=== PATIENT | female | born 1945 | race Caucasian/White ===

== ENCOUNTER → 2023-09-16 10:27 | Outpatient (REF) | payer MEDICARE, BC, SELFPAY | LOC: DHCBC HW 10:27 | PROVIDERS: ATTENDING PHYSICIAN Internal Medicine Cardiovascular Disease; FAMILY PHYSICIAN Family Medicine | DX: I35.0 Nonrheumatic aortic (valve) stenosis (principal) | CPT/HCPCS: 93306 ==

== ENCOUNTER → 2023-09-23 16:36 | Outpatient (REF) | payer MEDICARE, BC, SELFPAY | LOC: PAVMRI 16:36 | PROVIDERS: ATTENDING PHYSICIAN Podiatrist Primary Podiatric Medicine | DX: M19.071 Primary osteoarthritis, right ankle and foot (principal); M25.571 Pain in right ankle and joints of right foot; M65.871 Other synovitis and tenosynovitis, right ankle and foot | CPT/HCPCS: 73721 ==

== ENCOUNTER → 2023-11-20 12:19 | Outpatient (REF) | payer MEDICARE, BC, SELFPAY ==
[2023-11-20 15:31] LABS: ALT (SGPT) 29 U/L (0-35); AST (SGOT) 36 U/L (14-36); Alkaline Phosphatase 80 U/L (38-126); Blood Urea Nitrogen 17 mg/dl (7-17); Calcium 9.2 mg/dl (8.4-10.2); Carbon Dioxide 27 mmol/L (22-30); Chloride 105 mmol/L (98-107); Glucose 94 mg/dl (70-99); HDL Cholesterol 58 mg/dl; LDL Cholesterol, Calculated 115 mg/dl; Sodium 140 mmol/L (135-145); Total Bilirubin 0.4 mg/dl (0.2-1.3); Total Cholesterol 190 mg/dl (50-199); Total Protein 6.9 g/dl (6.3-8.2); Triglyceride 89 mg/dl (10-149); Very Low Density Lipoprotein 17 mg/dl (0-30); eGFR > 60.00
== END ==
LOC: HWLAB 12:19
PROVIDERS: ATTENDING PHYSICIAN Internal Medicine
DX: E78.5 Hyperlipidemia, unspecified (principal)
CPT/HCPCS: 36415; 80053; 80061

== ENCOUNTER → 2024-08-08 09:57 | Outpatient (REF) | payer MEDICARE, BC, SELFPAY ==
[2024-08-08 11:31] LABS: % Basophils 1.1 % (0-2); % Immature Granulocytes 0.3 % (0-0.5); % Lymphocytes 24.5 % (20.5-51.1); % Monocytes 8.5 % (1.7-9.3); % Neutrophils 62.6 % (42.2-75.2); Absolute Basophils 0.1 10^3/uL (0-0.2); Absolute Eosinophils 0.2 10^3/uL (0-0.7); Absolute Lymphocytes 1.8 10^3/uL (1.2-3.4); Absolute Monocytes 0.6 10^3/uL (0.1-0.6); Absolute Neutrophils 4.6 10^3/uL (1.4-6.5); Hematocrit 41.8 % (37.0-47.0); Hemoglobin 13.7 g/dL (12.0-16.0); Mean Corp Hgb Conc. 32.8 g/dL (33.0-37.0); Mean Corpuscular Volume 91.5 fL (81.0-99.0); Mean Platelet Volume 10.5 fL (7.4-10.4); Nucleated Red Blood Cells % 0 %; Platelet Count 318 10^3/uL (130-400); Red Blood Cell Count 4.57 10^6/uL (4.20-5.40); Red Cell Dist. Width 14.7 % (11.5-14.5); White Blood Cell Count 7.4 10^3/uL (4.8-10.8)
[2024-08-08 12:38] LABS: ALT (SGPT) 37 U/L (0-35); AST (SGOT) 36 U/L (14-36); Albumin 4.2 g/dl (3.5-5.0); Alkaline Phosphatase 88 U/L (38-126); Blood Urea Nitrogen 24 mg/dl (7-17); Calcium 9.5 mg/dl (8.4-10.2); Carbon Dioxide 30 mmol/L (22-30); Chloride 102 mmol/L (98-107); Glucose 96 mg/dl (70-99); HDL Cholesterol 51 mg/dl; LDL Cholesterol, Calculated 122 mg/dl; Potassium 4.1 mmol/L (3.5-5.1); Sodium 139 mmol/L (135-145); Total Bilirubin 0.6 mg/dl (0.2-1.3); Total Cholesterol 194 mg/dl (50-199); Total Protein 7.1 g/dl (6.3-8.2); Triglyceride 109 mg/dl (10-149); Very Low Density Lipoprotein 21 mg/dl (0-30); eGFR > 60.00
[2024-08-09 03:25] LABS: TSH Reflex To Free T4 2.29 uIU/ml (0.47-4.68)
[2024-08-09 21:16] LABS: Lipoprotein a (Lp a) 159 mg/dL (<=29)
== END ==
LOC: HWLAB 09:57
PROVIDERS: ATTENDING PHYSICIAN Family Medicine; REFERRING PHYSICIAN Internal Medicine Cardiovascular Disease
DX: E78.5 Hyperlipidemia, unspecified (principal); E78.2 Mixed hyperlipidemia; Z13.1 Encounter for screening for diabetes mellitus; R53.83 Other fatigue; Z13.29 Encounter for screening for other suspected endocrine disorder
CPT/HCPCS: 36415; 80053; 80061; 83695; 84443; 85025

== ENCOUNTER → 2024-08-31 11:02 | Outpatient (REF) | payer MEDICARE, BC, SELFPAY | LOC: WDC 11:02 | PROVIDERS: ATTENDING PHYSICIAN Family Medicine | DX: Z12.31 Encounter for screening mammogram for malignant neoplasm of breast (principal) | CPT/HCPCS: 77063; 77067 ==

== ENCOUNTER → 2024-09-07 13:02 | Outpatient (REF) | payer MEDICARE, BC, SELFPAY | LOC: HWRCS 13:02 | PROVIDERS: ATTENDING PHYSICIAN Internal Medicine Cardiovascular Disease; FAMILY PHYSICIAN Family Medicine | DX: I35.0 Nonrheumatic aortic (valve) stenosis (principal); I10 Essential (primary) hypertension; E78.2 Mixed hyperlipidemia; R06.02 Shortness of breath | CPT/HCPCS: 93306 ==

== ENCOUNTER → 2024-09-16 13:45 | Outpatient (REF) | payer MEDICARE, BC, SELFPAY | LOC: RAD 13:45 | PROVIDERS: ATTENDING PHYSICIAN Internal Medicine Cardiovascular Disease; FAMILY PHYSICIAN Family Medicine | DX: R06.02 Shortness of breath (principal); I35.0 Nonrheumatic aortic (valve) stenosis; E78.01 Familial hypercholesterolemia | CPT/HCPCS: 71046 ==

== ENCOUNTER → 2024-10-18 12:10 | Outpatient (REF) | payer MEDICARE, BC, SELFPAY ==
[2024-10-18 15:49] LABS: ALT (SGPT) 25 U/L (0-35); AST (SGOT) 30 U/L (14-36); Albumin 3.6 g/dl (3.5-5.0); Alkaline Phosphatase 74 U/L (38-126); Blood Urea Nitrogen 15 mg/dl (7-17); Calcium 9.2 mg/dl (8.4-10.2); Carbon Dioxide 27 mmol/L (22-30); Chloride 106 mmol/L (98-107); Glucose 96 mg/dl (70-99); Phosphorus 3.5 mg/dl (2.5-4.5); Potassium 4.3 mmol/L (3.5-5.1); Sodium 141 mmol/L (135-145); Total Bilirubin 0.4 mg/dl (0.2-1.3); Total Protein 6.5 g/dl (6.3-8.2); eGFR > 60.00
[2024-10-18 15:51] LABS: % Basophils 1.2 % (0-2); % Eosinophils 4.1 % (0-6); % Immature Granulocytes 0.2 % (0-0.5); % Lymphocytes 29.1 % (20.5-51.1); % Monocytes 7.9 % (1.7-9.3); % Neutrophils 57.5 % (42.2-75.2); Absolute Basophils 0.1 10^3/uL (0-0.2); Absolute Eosinophils 0.3 10^3/uL (0-0.7); Absolute Lymphocytes 1.8 10^3/uL (1.2-3.4); Absolute Monocytes 0.5 10^3/uL (0.1-0.6); Absolute Neutrophils 3.5 10^3/uL (1.4-6.5); Hematocrit 39.3 % (37.0-47.0); Mean Corp Hgb Conc. 33.1 g/dL (33.0-37.0); Mean Corpuscular Hgb 30.3 pg (27.0-31.0); Mean Corpuscular Volume 91.6 fL (81.0-99.0); Mean Platelet Volume 10.9 fL (7.4-10.4); Nucleated Red Blood Cells % 0 %; Platelet Count 335 10^3/uL (130-400); Red Blood Cell Count 4.29 10^6/uL (4.20-5.40); Red Cell Dist. Width 14.7 % (11.5-14.5)
== END ==
LOC: HWLAB 12:10
PROVIDERS: ATTENDING PHYSICIAN Internal Medicine Cardiovascular Disease; FAMILY PHYSICIAN Family Medicine
DX: I10 Essential (primary) hypertension (principal); I35.0 Nonrheumatic aortic (valve) stenosis; I65.23 Occlusion and stenosis of bilateral carotid arteries
CPT/HCPCS: 36415; 80053; 84100; 85025

== ENCOUNTER 2024-10-25 08:19 | Day surgery (SDC) | payer MEDICARE, BC, SELFPAY ==
[2024-10-25] VITALS (13 sets, daily range): BP systolic 152–171; BP diastolic 69–86; BMI 33.5
[2024-10-25] MEDS: NSS 253 ML IV (09:23)
--- NOTE | 2024-10-25 11:31 | CONSULT.STRU ---
Consultation
-
Date/Time Consultation Requested: 10/25/2024
Date/Time Consultation Performed: 10/25/2024
Requesting Provider: Nikolas Dahl MD
Performing Provider: SHASHA Velasquez
Reason for Consultation: /TAVR
Patient History
Physicians
Family Physician: Ez Garcia MD
Outpatient Reach Truck Operator: Lucian Justin MD
Primary Reach Truck Operator: Lucian Justin MD
History of Present Illness
Ms. Daniels is a very pleasant 79 yof with a past medical history significant for , HTN, HLD, dyslipidemia, GERD, CVA, essential tremor, anxiety, cervicalgia, and bilateral calcified arteries. Her most recent echocardiogram from 09/07/2024 is
notable for an EF 70-75%, aortic valve P/M 59/39, SUMI 1.0, no AI, Pk nate 3.51, MAC with mild MR, mild TR with PAP 39. From a symptomatology standpoint, patient describes ZAMUDIO. She states her exercise tolerance has decreased a little, however, she did
state that she is very tired by the end of the day and will fall asleep as soon as she sits down. Discussed the pathophysiology and treatment options of including SAVR and TAVR. Explained the evaluation process comprising of trending lab work, CT
scan, dental clearance, CT surgical consult, and a heart team discussion. Discussed lifelong management of AVR and the potential for another AVR in 10-12 years. We also discussed the importance of lifelong�preprocedural/predental antibiotic
prophylaxis for any future dental procedures. Patient presents today for surgical consideration for AVR (TAVR/SAVR). TAVR booklet, prescriptions, appointments, and contact information given to patient. Allowed for and answered questions at bedside.
Past Medical History
Past Medical History: CVA/TIA, ZAMUDIO, GERD, HTN, Hypercholesterolemia, Valvular Disease () and Other (essential tremor, cervicalgia, colitis, thrombophlebitis, arterioscleriosis of aorta, paraesophageal hernia)
Past Surgical History
Past Surgical History: Cholecystectomy, Tonsilectomy and Other (surgery for chorio-carcinoma, B/L TKA, hernia repair with mesh, patellar tendon revision/repair, bunionectomy, paraesophageal hernia repair)
Dental History
UTD
Family History
Mother: at Age (41) and Cause of (heart disease)
Family Medical History: Early CAD, CAD and Cancer
Social History
Alcohol: Occasional
Tobacco: Former Smoker
Personal:
Living: With Spouse
Employment: Retired
Allergies
Allergy/AdvReac Type Severity Reaction Status Date / Time
cefprozil [From Cefzil] Allergy Hives Verified 10/25/24 09:08
codeine Allergy nausea Verified 10/25/24 09:08
nickel Allergy allergy-suhail Verified 10/25/24 09:08
h
pollen extracts Allergy Unknown Verified 10/25/24 09:08
prochlorperazine edisylate Allergy 'parkinson Verified 10/25/24 09:08
[From Compazine] like
reaction'
prochlorperazine maleate Allergy 'parkinson Verified 10/25/24 09:08
[From Compazine] like
reaction'
Sulfa (Sulfonamide Allergy Anaphylaxis Verified 10/25/24 09:08
Antibiotics)
Environmental Allergy Sneeezing, Uncoded 10/25/24 09:08
itchy eyes
Home Medications
�Medication �Instructions �Recorded �Confirmed �Type
multivitamin (Daily Value tablet) 1 tab PO DAILY 02/16/10 10/25/24 History
diltiazem HCl 180 mg 180 mg PO HS 11/11/16 10/25/24 History
capsule,extended release 24 hr
(Cartia XT)
escitalopram oxalate 10 mg tablet 10 mg PO HS 11/11/16 10/25/24 History
primidone 50 mg tablet 50 mg PO BID 11/11/16 10/25/24 History
rosuvastatin 40 mg tablet (Crestor) 40 mg PO HS 11/11/16 10/25/24 History
losartan 50 mg tablet 50 mg PO DAILY 12/10/16 10/25/24 Rx
B-complex with vitamin C 1 caplet PO DAILY 12/16/16 10/25/24 Rx
ascorbic acid (vitamin C) 500 mg 500 mg PO DAILY 12/16/16 10/25/24 Rx
tablet (Vitamin C)
cholecalciferol (vitamin D3) 25 1,000 units PO DAILY 12/16/16 10/25/24 Rx
mcg (1,000 unit) tablet
ezetimibe 10 mg tablet 10 mg PO HS 12/16/16 10/25/24 Rx
Bifidobacterium infantis 4 mg 4 mg PO DAILY 08/25/20 10/25/24 History
capsule (Align (B.infantis))
Magnesium Citrate 1 tab PO DAILY 08/25/20 10/25/24 History
aspirin 81 mg tablet,delayed 81 mg PO DAILY 08/25/20 10/25/24 History
release
hydrochlorothiazide 25 mg tablet 25 mg PO DAILY 10/30/20 10/25/24 History
cranberry extract 650 mg capsule 1,300 mg PO DAILY 10/25/24 10/25/24 History
(Theracran)
omega 8-xod-fjd-fish oil 60 mg-90 1 cap PO DAILY 10/25/24 10/25/24 History
mg-500 mg capsule (Fish Oil)
STS%
STS %: 1.92
Review of Systems
-
History Source: Patient
General: Reports Fatigue
Respiratory: Reports ZAMUDIO
Cardiac: Reports No Symptoms
Abdomen/GI: Reports No Symptoms
: Reports No Symptoms
Musculoskeletal: Reports No Symptoms
Skin: Reports No Symptoms
Neurological: Reports No Symptoms
Vascular: Reports No Symptoms
Physical Exam
Vital Signs
Temp 98.6 F 10/25/24 08:45
Temp route: Oral 10/25/24 08:45
Pulse 62 10/25/24 08:45
Resp Rate 16 10/25/24 08:45
Blood pressure 154/69 10/25/24 08:45
Blood pressure extremity used: Left upper arm 10/25/24 08:45
Position: Sitting 10/25/24 08:45
SaO2 96 10/25/24 08:45
Oxygen Mode of Delivery Room air 10/25/24 08:45
Can the patient verbally communicate their pain? Yes 10/25/24 08:45
Actual Weight 84.4 kg 10/25/24 08:46
Body Mass Index (BMI) 33.5 10/25/24 08:46
Diagnostic Studies
ECHOCARDIOGRAM 09/07/2024:
CONCLUSIONS
Hyperdynamic left ventricular systolic function. Estimated left ventricular
ejection fraction is 70-75%.
Moderate/severe aortic stenosis. The peak gradient across the valve is 59 mmHg
with a mean of 39 mmHg. Using a LVOT diameter of 2.0 cm, the SUMI is 1.0 cm sq.
Compared to 09/16/23: has progressed from moderate to moderate/severe. Of
note, frequent PVC's were present, and [id number] variability in gradients
was observed.
Exam
General: Well Developed, Well Nourished, No Apparent Distress and Comfortable
HEENT: Normocephalic and PERRLA
Neck: Trachea Midline
Respiratory: Clear
Cardiac: Regular Rhythm and Murmur (II/ STEPHANIE)
GI: Soft, Non Tender and Non Distended
Rectal: Deferred by Provider
Skin: Warm and Dry
Neuro: Awake, Alert, Oriented and AO x 3
Extremities: Lower Level Edema
Psych: Calm
Assessment / Plan
-
Aortic stenosis
Continue TAVR evaluation
Trend creatinine (Rx given)
TAVR CT scan (11/04 @ 930)
CT surgical consult (MPT 11/15)
Frailty testing and KCCQ12 at consult
dental clearance
Continue aspirin
Heart team discussion
Data Reviewed
-
EKG: Tracing Personally Visualized and interpreted (NSR)
Fabric Designer: Report Reviewed by me and Discussed with Physician
Echo: Report Reviewed by me and Discussed with Physician
Labs: Labs Reviewed by me
Old Records: Reviewed
Total Time Spent with Patient (in minutes): 45
--- NOTE | 2024-10-25 17:23 | ITS.CL.PN ---
Corporate Lawyer - Procedure Note
Procedure
Procedure Note:
CARDIAC CATHETERIZATION REPORT
Date of Procedure: 10/25/2024
Referring: Dr. Lucian Justin MD
Indication: Severe aortic stenosis
PROCEDURE(S)
1. right heart catheterization
2. left heart catheterization
3. coronary angiography
ACCESS
1. 6F right radial artery (closure: radial band)
2. 5F right antecubital vein (closure: manual hemostasis)
CATHETERS
1. 5F Boardman-Ryan
2. 6F JR4
3. 6F JL3.5
MODERATE SEDATION: 35 minutes of moderate sedation was utilized. An independent medical assisting program director was present to assist with and help manage the patient's level of consciousness and physiologic status.
HEMODYNAMIC DATA
LV 191/13 (EDP 21) mmHg
AO 158/58 (mean 95) mmHg
RA 10 mmHg
RV 39/5 (EDP 12) mmHg
PA 43/23 (mean 30) mmHg
PCWP 17 mmHg
SaO2 93.2%
SvO2 73.5%
Hb 12.0 g/dL
CO/CI 7.19/3.89 L/min/m2
SVR 945 dsc*-5
PVR 1.8 Wood units
Aortic valve analysis: mean gradient 38 mmHg (Valve area 1.09 cm2), HR 71 (SVI = 54 mL/m2) - of note, patient has history of mild LVOT gradient on echo but no significant different in pressure gradient was noted when pulling the William catheter
from the mid cavity back to the LVOT
Ostial brachiocephalic artery mean gradient 23 mmHg
CORONARY ANGIOGRAPHY
Dominance: right
LM: Large, normal
LAD: Large vessel giving rise to a small D1 and moderate caliber D2 before wrapping around the apex. There is mild diffuse disease.
LCx: Moderate caliber vessel giving rise to a high rising large OM1/ramus, moderate caliber OM2, and small LPL branches. There is mild diffuse disease.
RCA: Large vessel giving rise to small RPDA and small RPL branch. There is a smooth 50% stenosis in the mid vessel and otherwise mild luminal irregularities only.
RADIATION: dose 281.61 mGy; DAP 19.8169 Gy*cm2; fluoroscopy time 10.5 min
CONCLUSIONS
1. Mildly elevated biventricular filling pressures, mild pulmonary hypertension, and high normal cardiac output.
2. Moderate to severe aortic stenosis.
3. Moderate right brachiocephalic stenosis with mean gradient 23 mmHg.
4. Single-vessel obstructive coronary artery disease in a right dominant system.
RECOMMENDATIONS
1. Proceed with workup for TAVR. If plan is made to proceed with TAVR and there is concern for future RCA coronary reaccess, PCI of the mid RCA prior to TAVR would be reasonable.
2. Continue with aggressive secondary prevention of coronary artery disease. Consider addition of PCSK9 inhibitor.
Copy to: Dr. Lucian Justin MD (repairer welding systems and equipment); Dr. zE Garcia DO (PCP)
Signed: Nikolas Dahl MD, PhD
== END 2024-10-25 14:31 | disposition home or self-care (01) ==
LOC: CATH 08:19
PROVIDERS: ATTENDING PHYSICIAN Internal Medicine Cardiovascular Disease; FAMILY PHYSICIAN Family Medicine; OTHER PHYSICIAN Internal Medicine Cardiovascular Disease
DX: I35.0 Nonrheumatic aortic (valve) stenosis (principal); I25.10 Atherosclerotic heart disease of native coronary artery without angina pectoris; I27.20 Pulmonary hypertension, unspecified; I10 Essential (primary) hypertension; E78.2 Mixed hyperlipidemia; R06.02 Shortness of breath; K21.9 Gastro-esophageal reflux disease without esophagitis; F41.9 Anxiety disorder, unspecified; G25.0 Essential tremor; Z86.73 Personal history of transient ischemic attack (TIA), and cerebral infarction without residual deficits; Z87.891 Personal history of nicotine dependence; Z82.49 Family history of ischemic heart disease and other diseases of the circulatory system; Z79.82 Long term (current) use of aspirin
CPT/HCPCS: 99152; 99153; C1769; C1894; 93460; Q9967

== ENCOUNTER → 2024-11-01 10:06 | Outpatient (REF) | payer MEDICARE, BC, SELFPAY ==
[2024-11-01 16:59] LABS: Blood Urea Nitrogen 21 mg/dl (7-17); Calcium 9.2 mg/dl (8.4-10.2); Carbon Dioxide 28 mmol/L (22-30); Chloride 105 mmol/L (98-107); Glucose 96 mg/dl (70-99); Potassium 4.3 mmol/L (3.5-5.1); Sodium 139 mmol/L (135-145); eGFR > 60.00
== END ==
LOC: HWLAB 10:06
PROVIDERS: ATTENDING PHYSICIAN Nurse Practitioner Acute Care; FAMILY PHYSICIAN Family Medicine
DX: I35.0 Nonrheumatic aortic (valve) stenosis (principal)
CPT/HCPCS: 36415; 80048

== ENCOUNTER → 2024-11-04 09:32 | Outpatient (REF) | payer MEDICARE, BC, SELFPAY | LOC: RAD 09:32 | PROVIDERS: ATTENDING PHYSICIAN Nurse Practitioner Acute Care | DX: I35.0 Nonrheumatic aortic (valve) stenosis (principal) | CPT/HCPCS: 74174; 75572; Q9967 ==

== ENCOUNTER 2025-01-12 09:45 | Inpatient (IN) | payer MEDICARE, BC, SELFPAY ==
[2025-01-09 13:00] LABS: Hematocrit 42.1 % (37.0-47.0); Hemoglobin 13.9 g/dL (12.0-16.0); Mean Corp Hgb Conc. 33.0 g/dL (33.0-37.0); Mean Corpuscular Volume 89.8 fL (81.0-99.0); Nucleated Red Blood Cells % 0 %; Platelet Count 334 10^3/uL (130-400); Red Cell Dist. Width 15.7 % (11.5-14.5)
[2025-01-09 13:01] LABS: Urine Character Clear (Clear)
[2025-01-09 13:08] LABS: INR 0.93; PT 12.8 Sec (11.4-14.6)
[2025-01-09 13:28] LABS: ALT (SGPT) 27 U/L (0-35); AST (SGOT) 21 U/L (14-36); Albumin 4.3 g/dl (3.5-5.0); Alkaline Phosphatase 71 U/L (38-126); Blood Urea Nitrogen 25 mg/dl (7-17); Calcium 9.6 mg/dl (8.4-10.2); Carbon Dioxide 24 mmol/L (22-30); Chloride 106 mmol/L (98-107); Glucose 116 mg/dl (70-99); Potassium 4.0 mmol/L (3.5-5.1); Sodium 136 mmol/L (135-145); Total Protein 7.7 g/dl (6.3-8.2); eGFR > 60.00
[2025-01-09 13:47] LABS: Urine Squamous Cell >30 /LPF (Few); Urine Urothelial Cell >30 /LPF (FEW)
[2025-01-09 13:51] LABS: Urine Red Blood Cell 0-2 /HPF (0-2); Urine White Cell 21-25 /HPF (0-5)
--- NOTE | 2025-01-09 14:14 | CM ---
Chart reviewed. Met with the patient and her in PAT. Reviewed preoperative and postoperative instructions and restrictions, along with showering guidelines. Gave patient 2 soaps. Patient is agreeable to a home visit by CT Transitional
RN. Patient is independent of ADLS, lives with her in a 2 S[address], 2 [place]INA, 0 DME. Plan is for the patient to return home with CT Transitional RN.
[2025-01-10 09:45] LABS: Glycohemoglobin (HgbA1c) 6.0 % (4.0-5.6)
[2025-01-12] VITALS (17 sets, daily range): BP systolic 115–167; BP diastolic 50–81; BMI 31.8
[2025-01-12] MEDS: ANCEF 10 IV (12:50)
[2025-01-12 13:52] LABS: ACT-LR - POC 244 Seconds (116-155)
[2025-01-12 14:19] LABS: ACT-LR - POC 213 Seconds (116-155)
--- NOTE | 2025-01-12 14:40 | CM ---
Chart reviewed. Patient is in the OR today. Patient is independent of ADLS, lives with her in a 2 STH, 2 [place], 0 DME. Plan is for the patient to return home with CT Transitional RN. CM to follow
--- NOTE | 2025-01-12 14:54 | W.CVOR.SURPR ---
CVOR Surgeon Immed Pre Op
-
I have examined this patient prior to performance of the scheduled procedure.
The patient's condition is unchanged from the time of the dictated/written History and
Physical and the patient is able to undergo the scheduled procedure.
--- NOTE | 2025-01-12 14:55 | W.IMMPOSTOP ---
Surgical Immed Post Op Note
-
[id number]
STRUCTURAL HEART PROCEDURE NOTE: TAVR
Preoperative Dx:
[id number] aortic stenosis w/ P/M: 59/39, Supervisor Backfilling 3.51, SUMI 1.0, no AI
CAD w/ smooth 50% prox-to-mid RCA lesion
Postoperative Dx:
Same
Procedures:
1) L CFV access w/ U/S and fluoroscopic guidance, Seldinger technique, long 6F sheath placement
2) L NATIONAL VAN TRUCK DRIVER access w/ tactile, U/S, and fluoroscopic guidance, Seldinger technique, long 6Fr sheath placement
3) R coronary angiography w/ iFR assessment (0.93/0.93/0.94)
4) R NATIONAL VAN TRUCK DRIVER access w/ tactile, U/S, and fluoroscopic guidance, Seldinger technique, 8Fr dilator, limited angiography
5) Perclose placement x 2 into R NATIONAL VAN TRUCK DRIVER, 8Fr sheath placement
6) Placement of temporary RV pacing wire, threshold testing
7) Placement of pigtail catheter in NCC w/ limited aortography w/ confirmation of cusp overlap view
8) Placement of 14Fr COOK sheath via R NATIONAL VAN TRUCK DRIVER
9) Wire purchase across stenotic AV (AL-1, soft-tip straight, table J-wire, pigtail catheter, LVEDP assessment)
10) Fluoroscopic inspection of TAVR valve, placement of Lunderquist wire in LV apex
11) Removal of 14Fr COOK sheath w/ placement of Evolut in-line sheath
12) R TF TAVR w/ placement of 26mm Evolut Fx+ (no recaptures)
13) Completion aortography
14) Completion TTE (mean gradient 8mmHg, no AI/PVL)
15) Removal of fnlez-pjiftgkz-vxyagg/in-line sheath w/ R NATIONAL V[employer] TRUCK DRIVER mgmt w/ perclose x 2; manual pressure
16) Completion R ileofemoral angiography
17) Removal of temporary pacing wire
18) Completion right coronary angiography
19) Limited L NATIONAL V[employer] TRUCK DRIVER angiography w/ subsequent removal of L NATIONAL V[employer] TRUCK DRIVER 6Fr sheath w/ mgmt w/ 6Fr angioseal; manual pressure
20) Removal of L CFV sheath;manual pressure
Lead Bi Developer:
Dr. Nikolas Dahl
Cardiac Surgeon:
Dr. Junior Carter
Anesthesia:
MAC w/ local to B/L groins
Complications:
None
Implants:
Medtronic Evolut Fx+, 26mm, [id number]
Perclose x 2 to R NATIONAL VAN TRUCK DRIVER
6Fr angioseal x 1 to L NATIONAL VAN TRUCK DRIVER
Cath Data:
Start: 1328hrs, Deploy: 1422hrs, End: 1447hrs
FT: 17.0min, mGy: 294, DAP: 29.7, Contrast: 159mL
Post-TTE: mean gradient 8mmHg, no AI/PVL
iFR of RCA - negative @ 0.93/0.93/0.94
Condition:
Stable/guarded to recovery
[2025-01-12 15:08] LABS: ACT-LR - POC 281 Seconds (116-155)
[2025-01-12] MEDS: ANCEF IV (15:26)
--- NOTE | 2025-01-12 16:15 | ITS.CL.PN ---
Engine Dispatcher - Procedure Note
Procedure
Procedure Note:
TRANSCATHETER AORTIC VALVE REPLACEMENT REPORT
Date of Procedure: 01/12/2025
Referring: Dr. Lucian Justin MD
Indication: Symptomatic severe aortic valve stenosis
Operators: Nikolas Dahl MD, PhD (interventional cardiology); Dr. Junior Carter MD (CT surgery)
Anesthesia: conscious sedation provided by the anesthesia staff
PROCEDURE:
1. coronary angiography
2. iFR RCA
3. transfemoral, transcatheter aortic valve replacement with a Medtronic Evolut FX+ 26 mm transcatheter aortic valve
ACCESS:
1. 6F left femoral vein (closure: manual hemostasis) - Ultrasound was utilized for vascular access. The vessel was visualized under ultrasound and noted to be patent. An image of the vessel was stored permanently in the patient's medical record.
Under direct ultrasound guidance, vascular access was obtained using a modified Seldinger technique and a 6 Tongan sheath was placed.
2. 6F left common femoral artery (closure: Angioseal) - Ultrasound was utilized for vascular access. The vessel was visualized under ultrasound and noted to be patent. An image of the vessel was stored permanently in the patient's medical record.
Under direct ultrasound guidance, vascular access was obtained using a modified Seldinger technique and a 6 Tongan sheath was placed.
3. 14 F right common femoral artery (closure: Perclose x2) - Ultrasound was utilized for vascular access. The vessel was visualized under ultrasound and noted to be patent. An image of the vessel was stored permanently in the patient's medical
record. Under direct ultrasound guidance, vascular access was obtained using a modified Seldinger technique and a 8 Tongan sheath was placed.
HEMODYNAMIC DATA
LVEDP 15 mmHg
CORONARY ANGIOGRAPHY:
RCA: selective coronary angiography of the RCA was performed and demonstrated mild ostial stenosis and a focal 60% stenosis in the mid-vessel, relatively unchanged from prior angiography.
PROCEDURE NARRATIVE:
The patient was prepped and draped in standard sterile fashion. Conscious sedation was provided by the anesthesia staff. 6F left femoral vein and left common femoral artery access was obtained with ultrasound guidance using micropuncture technique
with verification of appropriate arteriotomy location via hand injection angiography.
Heparin was given. Via the left common femoral artery sheath, the right coronary artery was engaged with a JR4 guide catheter. An Omni wire was flushed and zeroed outside the body and then advanced to the proximal RCA. The wire introducer was
removed and the catheter flushed with saline, after which pressure of the wire and guide were normalized. The wire was advanced to the mid RCA and iFR recorded at 0.93, 0.93, and 0.94. iFR pullback was performed noting a focal pattern at the mid RCA
stenosis. On return to the proximal RCA, iFR appropriately normalized to ~1.0, confirming lack of wire drift. Final angiography demonstrated no change in the appearance of the vessel. The wire and guide were removed. We then proceeded with TAVR.
A temporary venous pacing wire was advanced via the left femoral vein to the right ventricle under fluoroscopic guidance with appropriate capture verified. A 5F pigtail catheter was advanced via the left common femoral artery and seated in the
non-coronary cusp. Angiography was performed to verify the cusp overlap angle.
8F right common femoral artery access was obtained with ultrasound guidance using micropuncture technique with verification of appropriate arteriotomy location via hand injection angiography. The arteriotomy was preclosed with two Perclose sutures
followed by replacement of the 8F sheath. Using an AL1 catheter, a Lunderquist wire was placed in the descending thoracic aorta. A 12F dilator was advanced over the Lunderquist wire followed by placement of a 14F Cook sheath. The AL1 catheter was
re-advanced through the sheath to the level of the ascending aorta. The Lunderquist wire was exchanged for a soft tipped straight wire which was used to cross the aortic valve and deposit the AL1 in the LV apex. A J-wire was used to exchange the AL1
for a pigtail catheter in the LV and LVEDP was measured. The Lunderquist wire was advanced through the pigtail catheter and seated in the LV apex. ACT was checked and confirmed to be >300 seconds.
The valve was inspected under fluoroscopy to confirm lack of infolding above the 4th node. The Cook sheath was removed, and the in-line sheath was advanced over the Lunderquist wire into the descending aorta. The valve was then advanced over the
aortic arch and into the left ventricle. In the cusp overlap view, the valve was slowly deployed to the point of flowering. The patient was paced to adequately lower pulse pressure as the valve was deployed through the rumble strips to 80%.
Injection demonstrated a non-coronary cusp implant depth of 4 mm. Angiography performed in an SYRIAC projection demonstrated left coronary cusp implant depth of 4 mm. The decision was made to proceed with full deployment. The Lunderquist wire was
partially withdrawn to lift the nose cone of the valve delivery device. In the SYRIAC view, the delivery handle was slowly rotated until both paddles were released from the superior aspect of the valve. The delivery device was withdrawn to the
descending aorta and re-assembled. The patient was resuscitated by anesthesia with recovery of adequate blood pressure. Telemetry demonstrated sinus rhythm. Aortography demonstrated good valve positioning, adequate coronary filling, and no aortic
valve insufficiency. Echocardiography confirmed no aortic insufficiency. Mean valve gradient was 8 mmHg.
The valve deployment system and inline sheath were removed, and hemostasis obtained with the two Perclose sutures. Protamine 30 mg was given. Aortoiliac angiography demonstrated no evidence of iliofemoral dissection/perforation and good runoff below
the common femoral artery bilaterally. The pacemaker and the pigtail catheter were removed.
At this point it was noted that the patient was having frequent PVCs which were at times bigeminal. Furthermore, there were very subtle ST changes on telemetry. On review of telemetry it appeared that these changes have been present since the IFR
procedure. Thus, the decision was made to perform repeat selective angiography of the RCA to ensure no vessel compromise. This was accomplished without difficulty and demonstrated no change in the vessel appearance and GABRIELE-3 flow. The left femoral
artery sheath was removed using a 6F Angioseal. The left femoral venous sheath was removed with manual pressure.
CONCLUSIONS: successful placement of a Medtronic Evolut FX+ 26 mm transcatheter aortic valve via right transfemoral approach with no acute complications
Copy to: Dr. Lucian Justin MD (machine programmer); Dr. Ez Garcia DO (PCP)
Signed: Nikolas Dahl MD, PhD
--- NOTE | 2025-01-12 17:44 | PTCARENOTE ---
Rec'd pt from lab animal technician awake and alert. Pt NSR on monitor. VS done as per protocol. Pt with rt and left groin dsgs intact, no bleeding, no hematoma. Pt with +2 palpable pulses to bilateral LE. Neuro intact. Pts at bedside. Admission
assessment done. See worklist for VS/I and O and assessments.
[2025-01-12] MEDS: ANCEF 5 IV (18:41)
--- NOTE | 2025-01-12 19:16 | PTCARENOTE ---
Pt assisted oob up in chair. pt assisted to bathroom with one person assist, tolerated well.
[2025-01-12] MEDS: TYLENOL 650 MG PO (19:18)
[2025-01-12] MEDS: MYSOLINE 50 MG PO (20:25)
[2025-01-12] MEDS: CARDIZEM CD 180 MG PO (22:24)
[2025-01-12] MEDS: LEXAPRO 10 MG PO (22:24)
[2025-01-12] MEDS: CRESTOR 40 MG PO (22:24)
[2025-01-12] MEDS: ZETIA 10 MG PO (22:24)
[2025-01-13] VITALS (11 sets, daily range): BP systolic 139–210; BP diastolic 56–86; PULSE 73; O2SAT 98–100; BMI 32.4
[2025-01-13 05:40] LABS: Hematocrit 38.2 % (37.0-47.0); Hemoglobin 12.6 g/dL (12.0-16.0); Mean Corp Hgb Conc. 33.0 g/dL (33.0-37.0); Mean Corpuscular Volume 90.1 fL (81.0-99.0); Platelet Count 219 10^3/uL (130-400); Red Cell Dist. Width 15.0 % (11.5-14.5)
[2025-01-13 05:55] LABS: Blood Urea Nitrogen 25 mg/dl (7-17); Calcium 9.1 mg/dl (8.4-10.2); Carbon Dioxide 23 mmol/L (22-30); Chloride 108 mmol/L (98-107); Estimated Creatinine Clearance 77 ml/min; Glucose 111 mg/dl (70-99); Magnesium 2.6 mg/dl (1.6-2.3); Potassium 3.8 mmol/L (3.5-5.1); Sodium 135 mmol/L (135-145); eGFR > 60.00
--- NOTE | 2025-01-13 06:19 | W.PN.CT ---
Today's Communication / Plan
-
-pod #1
-no issues overnight
-groins are soft b/l. Pt c/o pain in L groin with changing position or palpation - will US this am
-nsr 60s. No hilario or pauses, has runs of PVCs upto 3 beats
-Echo today
-current meds (ASA, Crestor, Zetia, Cardizem CD, Cozaar, HCTZ)
-encourage IS, OOB
Assessment / Plan
-
- Hbjqkesw-bb-nrsave symptomatic aortic stenosis- s/p R TF TAVR w/ placement of 26mm Evolut Fx+ (no recaptures) on 01/12/25, pod #1
- Post-TTE: mean gradient 8mmHg, no AI/PVL
- CAD w/ smooth 50% prox-to-mid RCA lesion
- HTN/HLD
- PAD, mod R brachiocephalic stenosis
- EF 70-75%
- CVA
- b/l TKR
- Hx choriocarcinoma - s/p chemo
- Cholecystectomy
Discussed patient care with: Nursing and Care Team
Subjective
-
Date of Service: January 12, 2025
Objective Data
-
Lab Results
01/09/25 11:54
01/09/25 11:54
PT 12.8 Sec (11.4-14.6) 01/09/25 11:54
INR 0.93 01/09/25 11:54
Vital Signs
Vital Signs
Temp Pulse Resp BP Pulse Ox
97.8 F 72 20 162/60 94
01/12/25 22:23 01/12/25 22:00 01/12/25 22:23 01/12/25 20:35 01/12/25 22:23
CT Intake/Output/Weight
07/01/12/25 01/13/25
06:59 18:59 06:59
Intake Total 1500 / 1500
Balance 1500 / 1500
SaO2: 94
Physical Exam
-
General: Awake and AOx3
Cardiovascular: Regular rate & rhythm, No Murmurs and No Rub
Respiratory: Clear
Sternum: Stable
Incision: Other (groins cdi, soft, nontender, no hematoma b/l)
Extremities: Other (trace edema b/l, 2+ DPs b/l)
Abdomen: soft, nontender, nondistended, + bowel sounds
Data Reviewed
-
Lab Results: Results Reviewed
Medications: Active Meds Reviewed
Chest X-Ray: Report Reviewed and Image Reviewed
ECG: Report Reviewed and Image Reviewed
--- NOTE | 2025-01-13 08:00 | PTCARENOTE ---
Assumed care of pt from prev nsg shift; Pt AAOx3 w/no c/o CP or SOB. Pt does c/o L groin pain at puncture site; pt declining PRN Tylenol at this time. CT surgery PA ordered a L groin U/S for this AM. Pt w/elevated BP this AM 170/68, aware AM
meds to be given as ordered. HR stable in the 60's & pt is SR w/occas PVC's on telemetry monitoring. Pt assisted OOB for breakfast. Pt w/call lynn within reach & plan of care ongoing.
--- NOTE | 2025-01-13 08:42 | W.PN.CD ---
Today's Communication / Plan
-
Await groin ultrasound and echocardiogram. If the above tests are fine and she remained stable on telemetry then possible discharge later today
I will continue to see her in follow-up in the office
Impression / Plan
-
79-year-old woman with exertional shortness of breath, medically treated coronary artery disease and aortic stenosis who has had exertional shortness of breath
.
s/P Status post TAVR - Medtronic 01/12/2025
- Groin sites. Right sides nontender no swelling. Left side no significant swelling or ecchymosis but she has some tenderness. Ultrasound already ordered by CT surgery will await result
- Stable on telemetry
- Await echo
.
Coronary artery disease. Patient with RCA stenosis. FFR yesterday suggesting nonobstructive disease.
- Continue medical therapy
.
Hypertension. Blood pressure elevated this morning just getting morning meds reassess after morning meds given if needed losartan can be titrated for additional blood pressure control
.
Hypercholesterolemia rosuvastatin
Physical Exam
Vital Signs/Labs
Vital Signs
Temp Pulse Resp BP Pulse Ox
99.2 F 78 20 170/68 95
01/13/25 07:53 01/13/25 07:53 01/13/25 07:53 01/13/25 07:53 01/13/25 07:53
01/12/25 01/13/25 01/14/25
06:59 06:59 06:59
Actual Weight 84 kg 80.3 kg
01/13/25 04:52
01/13/25 04:52
PT 12.8 Sec (11.4-14.6) 01/09/25 11:54
INR 0.93 01/09/25 11:54
Magnesium 2.6 mg/dl (1.6-2.3) H 01/13/25 04:52
01/09/25
11:54
Hxi-U-Tuexsubovqj Pept 157
Physical Exam
Constitutional: No acute distress
Cardiovascular: Rhythm & rate is regular
Respiratory: Wheeze Absent and Rhonchi Absent
GI: Soft and Normal bowel sounds
Neuro/Psych: Alert
Other: Other (Cath sites appear fine left cath site has some increased tenderness with palpation. Ultrasound is pending)
Data Reviewed
-
Date of Service: January 13, 2025
Medical Decision Making: Reviewed Test Results
Echo: Report Reviewed by me
Medical Tests (PFT, Pathology etc): Report Reviewed by me
Labs: Labs Reviewed by me
--- NOTE | 2025-01-13 08:49 | W.DCSUMMARY ---
Discharge Summary
Discharge Data
Date of Admission: 01/12/25
Date of Discharge: 01/13/25
-
Pending Results: No
Hospital Course
Primary care physician: Ez Garcia
Outpatient chemical engineering professor: Nhan
Inpatient consultants: KAYLA
Procedures:
1. 01/12/25 Right transfemoral TAVR with #26 Medtronic Evolut Fx
Primary Diagnosis:
1. severe symptomatic aortic stenosis
Secondary Diagnoses:
1. Coronary artery disease with 50% prox-mid RCA lesion
2. hypertension
3. Hyperlipidemia
4. peripheral arterial disease with moderate right brachiocephalic stenosis
5. hx CVA
6. osteoarthritis s/p bilateral TKA
7. hx of choriocarcinoma s/p chemotherapy
8. hx cholecystectomy
HPI: Patient is a 79y/oF with known aortic stenosis and worsening dyspnea on exertion. Most recent TTE demonstrated normal EF at 70-75% with now severe , PG/MG 59/39mmHg, SUMI 1.0 and no AI. Pt referred for TAVR evaluation. After all preoperative
workup was completed, she was deemed a suitable candidate to undergo the procedure.
Hospital course: Patient was electively admitted on 01/12/2025 where she underwent an uncomplicated right transfemoral TAVR with a #26 Medtronic evolut fx valve by Drs. Carter and Hesham. Postop EKG demonstrated sinus rhythm with a first-degree AV
block. Groins remained stable. On postop day 1 patient was complaining of some left groin pain without palpable hematoma or bleeding. Ultrasound of the left groin was negative for pseudoaneurysm or hematoma. Patient's first-degree AV block has
resolved. Follow-up echo demonstrated a well-seated TAVR valve with mean gradient of 10 mmHg, no AI. Pt was hypertensive on day of discharge, losartan has been increased by cardiology. She is stable for discharge to home.
Home medication changes: losartan 25mg increased to 100mg daily
Discharge Plan
-
Patient Disposition: Home (Routine Discharge)
Discharge Diagnosis/Procedures: TF TAVR
Condition: Good
Diet: Low Fat, Low Cholesterol and 2 Gram Sodium
Activity: As tolerated
Driving Restrictions: No driving for 1 week
Bathing Restrictions: OK to Shower
Others Tests: 30-day follow up echo: February 13, 2025 @ 0920am in [facility]
Other Services: Cardiac Rehab
Wound Care: NO lotions, powders or creams to puncture sites
Specialty Instructions: Weigh Daily- Call MD for wt gain/loss 3 lbs overnight/5 lbs in 1 week
Referrals:
CT Transitional Care Nurse [Outside] - in one to two days
Referral Note: The Cardiothoracic Transitional Care Nurse will call you to set up a visit in 1-2 days.
[facility]. Cardiac Rehab [Outside] - 02/15/25 8:30 am
Referral Note: Cardiac Rehab Orientation appointment is on 02/15/25 at 8:30 am
The Cardiac Rehab gym is located on the first floor of the [facility].
Kelly Crawford NP [Specified Professional Personl, Cardiology] - 02/14/25 11:00 am
Ez Gracia Jr., DO [Family Provider, Internal Medicine] - in four to six weeks
Referral Note: Please make an appointment in four to six weeks.
Prescriptions:
New
losartan 100 mg tablet
100 mg PO DAILY Qty: 30 2RF
Continued
ascorbic acid (vitamin C) [Vitamin C] 500 MG tablet
1,000 mg PO DAILY
Align 4mg
1 cap PO DAILY
Multivitamin 50 Plus Tablet
1 tab PO DAILY
primidone 50 MG tablet
50 mg PO BID Qty: 0 0RF
cetirizine [Zyrtec] 10 mg Tablet
10 mg PO DAILY Qty: 0 0RF
diltiazem HCl [Cartia XT] 180 MG capsule,extended release 24hr
180 mg PO HS Qty: 0 0RF
aspirin 81 MG tablet,delayed release (DR/EC)
81 mg PO DAILY Qty: 0 0RF
vitamin B complex Tablet
1 tab PO DAILY Qty: 0 0RF
hydrochlorothiazide 25 MG tablet
25 mg PO DAILY Qty: 0 0RF
magnesium 200 mg Tablet
400 mg PO DAILY Qty: 0 0RF
escitalopram oxalate 10 MG tablet
10 mg PO HS Qty: 0 0RF
ezetimibe 10 MG tablet
10 mg PO HS Qty: 0 0RF
rosuvastatin [Crestor] 40 MG tablet
40 mg PO HS Qty: 0 0RF
Theracran 650 mg Capsule
650 mg PO DAILY Qty: 0 0RF
mirabegron [Myrbetriq] 50 mg Tablet Extended Release 24 Hr
50 mg PO DAILY Qty: 0 0RF
Changed
cholecalciferol (vitamin D3) 1,000 UNITS tablet
1,000 unit PO DAILY Qty: 0 0RF
Discontinued
losartan 50 MG tablet
50 mg PO DAILY 0RF
Discharge Orders:
Discharge Patient (As Directed); Ordered 01/13/25
Ordered By: Alaina Ignacio
Care Plan Goals
Care Plan Goals:
Problem: Readiness for enhanced knowledge related to diagnosis and treatment plan
Goal: Understand your diagnosis and treatment plan needs, including medications if applicable.
Instructions: Know your diagnosis, underlying causes and treatment plan options, including medications if applicable. Consult with your health care team to learn about your diagnosis and treatment plan, including medications if applicable.
Discharge Date and Time
Print Language: PAP[place]
[2025-01-13] MEDS: ASPIR LOW (ENTERIC COATED) 81 MG PO (09:04)
[2025-01-13] MEDS: ORETIC 25 MG PO (09:04)
[2025-01-13] MEDS: MYRBETRIQ EXTENDED RELEASE 50 MG PO (09:04)
[2025-01-13] MEDS: COZAAR 50 MG PO ×2 (09:05→14:11)
[2025-01-13] MEDS: MYSOLINE 50 MG PO (09:05)
--- NOTE | 2025-01-13 10:31 | CM ---
Reviewed chart. Met with Mrs. Daniels to review discharge plans. She states she is feeling well and maybe able to go home soon. She states prior to admission she resides with her spouse in a two story home with two steps to enter. She states she
has a full flight of steps to get to bedroom/full bathroom. She states she has a powder room on the first floor. She states prior to admission she was independent with ambulation and adls. She states she does have a walker, rollator, single point
cane and knee scooter that she is currently not using. She states she has a prescription plan and uses [facility]. We reviewed a home visit by the Transitional Care Nurse. She is agreeable to a home visit. She states her spouse will be
home to assist in her care if needed. Medical work-up in progress. The discharge plan is to return home with her spouse and a home visit by the Transitional Care Nurse when medically stable.
--- NOTE | 2025-01-13 13:06 | W.PN.ANS.POP ---
Anesthesia Post Operative
- Anesthesia Post Op Note
Vital Signs Stable-See Nursing Note: Yes
Airway Patent: Yes
Adequate Pain Control: Yes
Change in Mental Status: No
Current Postoperative Nausea & Vomiting: No
Anesthesia Complications: No
General Anesthetic Recall: No
Unplanned Admission: No
Post Op Hydration Adequate: Yes
--- NOTE | 2025-01-13 16:04 | PTCARENOTE ---
D/C'd pt's IV line & delivery room supervisor. Discussed pt's D/C instructions w/pt & pt's spouse. Pt escorted out via WC w/her driving her home. Pt left w/personal belongings including cellphone, travis, chargers, & clothing.
== END 2025-01-13 16:00 | disposition home or self-care (01) | DRG 267 ==
LOC: IVU 09:45
PROVIDERS: Physician Assistant Medical; ADMITTING PHYSICIAN Thoracic Surgery (Cardiothoracic Vascular Surgery); CONSULT PHYSICIAN Student in an Organized Health Care Education/Training Program; FAMILY PHYSICIAN Family Medicine
PROC: 02RF38Z Replacement of Aortic Valve with Zooplastic Tissue, Percutaneous Approach (ICD-10-PCS; 2025-01-12)
PROC: 4A033BC Measurement of Arterial Pressure, Coronary, Percutaneous Approach (ICD-10-PCS; 2025-01-12)
PROC: B2101ZZ Fluoroscopy of Single Coronary Artery using Low Osmolar Contrast (ICD-10-PCS; 2025-01-12)
DX: I35.0 Nonrheumatic aortic (valve) stenosis (principal); Z00.6 Encounter for examination for normal comparison and control in clinical research program; I25.10 Atherosclerotic heart disease of native coronary artery without angina pectoris; I49.3 Ventricular premature depolarization; R00.8 Other abnormalities of heart beat; I10 Essential (primary) hypertension; I73.9 Peripheral vascular disease, unspecified; E78.00 Pure hypercholesterolemia, unspecified; I44.0 Atrioventricular block, first degree; R10.32 Left lower quadrant pain; Z86.73 Personal history of transient ischemic attack (TIA), and cerebral infarction without residual deficits
CPT/HCPCS: 33361; 36415; 71045; 71046; 80048; 80053; 81003; 81015; 82248; 83036; 83735; 83880; 85025; 85027; 85347; 85610; 86850; 86900; 86901; 86920; 87070; 87086; 93005; 93308; 93321; 93325; 93799; 93926; C1760; C1769; C1894; Q9967

== ENCOUNTER 2025-01-27 11:12 | Emergency (ER) | payer MEDICARE, BC, SELFPAY ==
[2025-01-27 11:19] VITALS: BP 134/76
[2025-01-27 11:44] LABS: Hematocrit 39.0 % (37.0-47.0); Hemoglobin 12.6 g/dL (12.0-16.0); Mean Corp Hgb Conc. 32.3 g/dL (33.0-37.0); Mean Corpuscular Volume 92.2 fL (81.0-99.0); Nucleated Red Blood Cells % 0 %; Platelet Count 250 10^3/uL (130-400); Red Cell Dist. Width 15.4 % (11.5-14.5)
[2025-01-27 12:04] LABS: ALT (SGPT) 49 U/L (0-35); AST (SGOT) 31 U/L (14-36); Albumin 3.7 g/dl (3.5-5.0); Alkaline Phosphatase 78 U/L (38-126); Blood Urea Nitrogen 22 mg/dl (7-17); Calcium 8.9 mg/dl (8.4-10.2); Carbon Dioxide 26 mmol/L (22-30); Chloride 108 mmol/L (98-107); Glucose 96 mg/dl (70-99); Potassium 3.7 mmol/L (3.5-5.1); Sodium 139 mmol/L (135-145); Total Protein 6.7 g/dl (6.3-8.2); eGFR > 60.00
[2025-01-27 12:09] LABS: Troponin I < 0.012 ng/ml
[2025-01-27 14:09] VITALS: BP 158/72
--- NOTE | 2025-01-27 15:23 | ED.GENMED ---
History of Present Illness
General
Chief Complaint: Fatigue
Time Seen by Provider: 01/27/25 15:18
Nursing documentation reviewed up to this point in time: agreed with
History of Present Illness
History of Present Illness:
79-year-old female presents to the ER for evaluation of generalized fatigue, mild dyspnea and increased frequency of migraine headaches over the last 2 weeks. She had traveled to [place] 1 month ago and developed COVID after returning home.. 2
weeks later she underwent TAVR. She states that since her TAVR she has not had any further edema to her bilateral lower extremities. She denies any fevers or chills. No cough or cold symptoms since her COVID. No nausea vomiting or diarrhea. No
rash. Patient denies focal weakness. She does have a history of tremors and has been on primidone for years, unchanged. She also has a history of ocular migraines and previously would only experience symptoms 2-3 times a year. She has been
having ocular migraines nearly daily and and has also been associating headaches with her visual changes. Typically she would not have any headache with her visual disturbance. She denies amaurosis fugax or loss of vision. She states that the
visual abnormalities associate with her migraines are similar to prior migraine headaches. She did have an increase in her blood pressure medication status post TAVR due to elevated systolic blood pressures. Patient reports that when she feels
fatigued, she has difficulty vocalizing and her voice is much softer. Patient reports resolution of her headache at the current time.
Past History
Past History
ED Past Medical History: HTN, Hypercholesterolemia and Other (Patient has kidney stones, urinary tract infection, choriocarcinoma.)
ED Past Surgical History: Cholecystectomy, Tonsilectomy and Other (The patient has also had knee surgery, cardiac catheterization, tubal ligation, and D&C.)
Social History
Tobacco: Former smoker
Alcohol: Occasional
Personal:
Living: with family
Employment: Retired
Phy Exam
Physical Exam
Physical Exam:
Patient is awake, alert, appears no acute distress, mucous memories moist, conjunctiva pink, wearing glasses, no photophobia, PERRL, EOMI, no carotid bruits, no JVD, heart regular rate and rhythm no murmurs or ectopy, lungs are clear to auscultation
without wheezes rales or rhonchi, abdomen is soft, obese nontender, no guarding or rebound, extremities without edema, 2+ DP pulses present symmetric bilateral feet, no rash, GCS is 15, no dysdiadochokinesia, no ataxia, no pronator drift
Course
Orders/Labs/Results
Orders:
Orders
01/27/25 11:21
EKG [Electrocardiogram (*1)] Urgent
Reason for Study: Shortness of Breath
01/27/25 11:22
EKG- Treatment ONCE
01/27/25 11:31
Complete Blood Count/With Diff Urgent
Comprehensive Metabolic Panel Urgent
Troponin I Urgent
01/27/25 15:40
CT Head W/o Iv Contrast Urgent
Comment:
Reason For Exam: weakness, change in migraine pattern
01/27/25 15:41
CR Chest - 2 Views Urgent
Comment:
Reason For Exam: dyspnea
01/27/25 15:59
D-Dimer Urgent
Urinalysis Reflex To Culture Urgent
Date Specimen was Collected: 01/27/25
Time Specimen was Collected: 15:47
Urine Microscopic Reflex Cult Urgent
Urine Culture Urgent
ABIEL Source: U
Specimen Description:
Date Specimen was Collected: 01/27/25
Time Specimen was Collected: 15:47
01/27/25 16:57
CT Chest PE Study Urgent
Comment:
Reason For Exam: dyspnea, elevated ddimer
Abnormal Lab Results
01/27/25 01/27/25
11:31 15:59
MCHC 32.3 L g/dL
(33.0-37.0)
RDW 15.4 H %
(11.5-14.5)
D-Dimer 3.19 H ug/mlFEU
(0.00-0.50)
Chloride 108 H mmol/L
(98-107)
BUN 22 H mg/dl
(7-17)
ALT 49 H U/L
(0-35)
Leukocyte Esterase Rfl 2+ A
(Negative)
Urine WBC (Reflex) 11-15 A /HPF
(0-5)
Urine Bacteria (Reflex) Few A
(Negative)
01/27/25 11:31
01/27/25 11:31
CBC and chemistries are within normal limits
Vital Signs
Initial and Last Documented VS:
Initial Vital Signs
Temp Pulse Resp BP Pulse Ox
98.0 F 67 18 134/76 99
01/27/25 11:19 01/27/25 11:19 01/27/25 11:19 01/27/25 11:19 01/27/25 11:19
Last Documented Vital Signs
Temp Pulse Resp BP Pulse Ox
98.0 F 58 24 144/61 98
01/27/25 11:19 01/27/25 17:45 01/27/25 17:30 01/27/25 17:19 01/27/25 19:14
MDM/Problems Addressed
Differential Diagnosis Includes:
Differential diagnosis to consider but not limited to electrolyte dyscrasia, occult pneumonia, PE, intracranial hemorrhage, CVA along with other etiologies considered
*Radiology
Radiology exam reviewed: preliminary read by ED provider (I independently viewed interpreted two-view chest showing clear lungs, normal cardiac silhouette)
*Pulse Oximetry
SaO2: 100
Oxygen Mode of Delivery: Room air
Patient hypoxic: no
*EKG
Interpreted by ED Provider?: Yes (I independently viewed and interpreted twelve-lead EKG showed normal sinus rhythm, no ectopy, rate 63, nonspecific T wave changes in the lateral leads, no ST elevation, abnormal tracing)
*Travel Physical Therapist Interpretation
Rate: normal (I independently and interpreted rhythm strip showing normal sinus rhythm, no ectopy)
*Critical Care Note
Total Time (30-74mins, 75-104mins- exclusive of procedures): Not Applicable
Update Note
Update Note:
1700: D-dimer added given recent travel and COVID which is elevated. CT PE ordered. Awaiting CT head also. Urinalysis is consistent with contamination, not true infection. Chest x-ray appears normal. Patient updated
1926: Once all test result available, I reviewed information with patient and present bedside. Patient has known lesion in her right lower lung that she is seeing specialist for, no change. No evidence for acute intracranial process. No
evidence for pulmonary embolism or other acute worrisome process. I discussed with them plan for discharge home. We discussed use of incentive spirometer and finding of atelectasis on CT of the chest. She feels comfortable plan for discharge and
has no questions at the current time.
ED Attending Note
-
Portions of this chart may have been created with voice recognition software.� Occasional wrong word or��sound alike� substitutions may have occurred due to the inherent limitations of voice recognition software.
Discharge Plan
Departure
Patient Disposition: Home (Routine Discharge)
Date of Disposition: 01/27/25
Time of Disposition: 19:25
Patient with high blood pressure during this ER visit?: Yes
Discharge Problem:
Fatigue, Frequent headaches
Instructions: Fatigue (DC), BLOOD PRESSURE
Prescriptions:
No Action
ascorbic acid (vitamin C) [Vitamin C] 500 MG tablet
1,000 mg PO DAILY
Align 4mg
1 cap PO DAILY
Multivitamin 50 Plus Tablet
1 tab PO DAILY
primidone 50 MG tablet
50 mg PO BID Qty: 0 0RF
cetirizine [Zyrtec] 10 mg Tablet
10 mg PO DAILY Qty: 0 0RF
diltiazem HCl [Cartia XT] 180 MG capsule,extended release 24hr
180 mg PO HS Qty: 0 0RF
aspirin 81 MG tablet,delayed release (DR/EC)
81 mg PO DAILY Qty: 0 0RF
vitamin B complex Tablet
1 tab PO DAILY Qty: 0 0RF
hydrochlorothiazide 25 MG tablet
25 mg PO DAILY Qty: 0 0RF
magnesium 200 mg Tablet
400 mg PO DAILY Qty: 0 0RF
escitalopram oxalate 10 MG tablet
10 mg PO HS Qty: 0 0RF
ezetimibe 10 MG tablet
10 mg PO HS Qty: 0 0RF
rosuvastatin [Crestor] 40 MG tablet
40 mg PO HS Qty: 0 0RF
cholecalciferol (vitamin D3) 1,000 UNITS tablet
1,000 unit PO DAILY Qty: 0 0RF
Theracran 650 mg Capsule
650 mg PO DAILY Qty: 0 0RF
mirabegron [Myrbetriq] 50 mg Tablet Extended Release 24 Hr
50 mg PO DAILY Qty: 0 0RF
losartan 100 mg tablet
100 mg PO DAILY Qty: 30 2RF
Referrals:
Ez Garcia Jr., DO [Family Provider, Internal Medicine]
Activity Restrictions/Additional Instructions:
Continue your current medications. Please follow-up with your primary care physician for reevaluation in 1 week. Return to the ER for any concerns
Interventions
Interventions:
*Risk Screen - Suicide Last Done: 01/27/25 11:19
*General Assessment Last Done: 01/27/25 11:19
*Neglect/Abuse Screening Last Done: 01/27/25 16:19
*ED COVID-19 Vaccine History Last Done: 01/27/25 11:19
Discharge Date and Time
Print Language: LEBANESE
[2025-01-27 16:00] VITALS: BP 146/64
[2025-01-27 16:26] LABS: Urine Character Clear (Clear)
[2025-01-27 16:37] LABS: D-Dimer 3.19 ug/mlFEU (0.00-0.50)
[2025-01-27 16:43] LABS: Urine Red Blood Cell 0-2 /HPF (0-2); Urine Squamous Cell >30 /LPF (Few)
[2025-01-27 17:19] VITALS: BP 144/61
[2025-01-27 19:07] VITALS: BP 166/70
[2025-01-27 19:14] VITALS: BMI 33.5
== END 2025-01-27 19:30 | disposition home or self-care (01) ==
LOC: EMR 11:12
PROVIDERS: Emergency Medicine; EMERGENCY PHYSICIAN Emergency Medicine; FAMILY PHYSICIAN Family Medicine
DX: G43.909 Migraine, unspecified, not intractable, without status migrainosus (principal); R06.02 Shortness of breath; R53.83 Other fatigue; R53.1 Weakness; R79.89 Other specified abnormal findings of blood chemistry; I10 Essential (primary) hypertension; J98.4 Other disorders of lung; E78.00 Pure hypercholesterolemia, unspecified; R01.1 Cardiac murmur, unspecified; K21.9 Gastro-esophageal reflux disease without esophagitis; M19.90 Unspecified osteoarthritis, unspecified site; F41.9 Anxiety disorder, unspecified; Z98.890 Other specified postprocedural states; Z79.82 Long term (current) use of aspirin; Z95.2 Presence of prosthetic heart valve; Z96.653 Presence of artificial knee joint, bilateral; Z85.89 Personal history of malignant neoplasm of other organs and systems; Z86.16 Personal history of COVID-19; Z87.442 Personal history of urinary calculi; Z87.440 Personal history of urinary (tract) infections; Z86.73 Personal history of transient ischemic attack (TIA), and cerebral infarction without residual deficits; Z87.891 Personal history of nicotine dependence; Z90.49 Acquired absence of other specified parts of digestive tract; Z88.1 Allergy status to other antibiotic agents; Z88.3 Allergy status to other anti-infective agents; Z88.5 Allergy status to narcotic agent; Z88.2 Allergy status to sulfonamides; Z88.8 Allergy status to other drugs, medicaments and biological substances; Z91.048 Other nonmedicinal substance allergy status
CPT/HCPCS: 99285; 70450; 71046; 71275; 80053; 81003; 81015; 84484; 85025; 85379; 87086; 93005; Q9967

== ENCOUNTER → 2025-02-13 09:12 | Outpatient (REF) | payer MEDICARE, BC, SELFPAY | LOC: RCS 09:12 | PROVIDERS: ATTENDING PHYSICIAN Internal Medicine Cardiovascular Disease; FAMILY PHYSICIAN Family Medicine | DX: I35.0 Nonrheumatic aortic (valve) stenosis (principal) | CPT/HCPCS: 93306 ==

== ENCOUNTER 2025-02-24 14:00 | Outpatient (RCR) | payer MEDICARE, BC, SELFPAY ==
[2025-02-24 11:29] LABS: HDL Cholesterol 58 mg/dl; LDL Cholesterol, Calculated 115 mg/dl; Very Low Density Lipoprotein 13 mg/dl (0-30)
== END 2025-02-24 23:59 | disposition home or self-care (01) ==
LOC: CRHB 14:00
PROVIDERS: ATTENDING PHYSICIAN Internal Medicine Cardiovascular Disease; FAMILY PHYSICIAN Family Medicine
DX: Z95.4 Presence of other heart-valve replacement (principal)
CPT/HCPCS: 36415; 80061; G0422; G0423

== ENCOUNTER 2025-03-27 11:58 | Outpatient (RCR) | payer MEDICARE, BC, SELFPAY | END 2025-03-27 23:59 | disposition home or self-care (01) | LOC: CRHB 11:58 | PROVIDERS: ATTENDING PHYSICIAN Internal Medicine Cardiovascular Disease; FAMILY PHYSICIAN Family Medicine | DX: Z95.4 Presence of other heart-valve replacement (principal) | CPT/HCPCS: G0422; G0423 ==

== ENCOUNTER 2025-03-27 13:40 | Outpatient (RCR) | payer MEDICARE, BC, SELFPAY | END 2025-03-27 23:59 | disposition home or self-care (01) | LOC: RST 13:40 | PROVIDERS: ATTENDING PHYSICIAN Otolaryngology; FAMILY PHYSICIAN Family Medicine | DX: J38.5 Laryngeal spasm (principal); R49.0 Dysphonia; Z98.890 Other specified postprocedural states; Z86.16 Personal history of COVID-19 | CPT/HCPCS: 92507; 92524 ==

== ENCOUNTER → 2025-04-07 08:11 | Outpatient (REF) | payer MEDICARE, BC, SELFPAY | LOC: HWRCS 08:11 | PROVIDERS: ATTENDING PHYSICIAN Internal Medicine Cardiovascular Disease; FAMILY PHYSICIAN Family Medicine | DX: R06.02 Shortness of breath (principal); R53.83 Other fatigue | CPT/HCPCS: 78452; 93017; A9500; J2785 ==

== ENCOUNTER 2025-04-20 08:24 | Outpatient (RCR) | payer MEDICARE, BC, SELFPAY | END 2025-04-20 23:59 | disposition home or self-care (01) | LOC: RST 08:24 | PROVIDERS: ATTENDING PHYSICIAN Otolaryngology; FAMILY PHYSICIAN Family Medicine | DX: J38.5 Laryngeal spasm (principal); R49.0 Dysphonia; Z98.890 Other specified postprocedural states; Z86.16 Personal history of COVID-19 | CPT/HCPCS: 92507 ==

== ENCOUNTER 2025-04-28 11:39 | Outpatient (RCR) | payer MEDICARE, BC, SELFPAY | END 2025-04-28 23:59 | disposition home or self-care (01) | LOC: CRHB 11:39 | PROVIDERS: ATTENDING PHYSICIAN Internal Medicine Cardiovascular Disease; FAMILY PHYSICIAN Family Medicine | DX: Z95.4 Presence of other heart-valve replacement (principal) | CPT/HCPCS: G0422; G0423 ==

== ENCOUNTER 2025-05-24 12:53 | Outpatient (RCR) | payer MEDICARE, BC, SELFPAY | END 2025-05-24 23:59 | disposition home or self-care (01) | LOC: CRHB 12:53 | PROVIDERS: ATTENDING PHYSICIAN Internal Medicine Cardiovascular Disease; FAMILY PHYSICIAN Family Medicine | DX: Z95.4 Presence of other heart-valve replacement (principal); I35.0 Nonrheumatic aortic (valve) stenosis | CPT/HCPCS: G0422; G0423 ==

== ENCOUNTER 2025-05-29 10:14 | Outpatient (RCR) | payer MEDICARE, BC, SELFPAY | END 2025-05-29 23:59 | disposition home or self-care (01) | LOC: CRHB 10:14 | PROVIDERS: ATTENDING PHYSICIAN Internal Medicine Cardiovascular Disease; FAMILY PHYSICIAN Family Medicine | DX: Z95.4 Presence of other heart-valve replacement (principal); I35.0 Nonrheumatic aortic (valve) stenosis | CPT/HCPCS: G0422; G0423 ==

== ENCOUNTER → 2025-06-07 13:11 | Outpatient (REF) | payer MEDICARE, BC, SELFPAY ==
[2025-06-07 14:09] LABS: Hematocrit 39.9 % (37.0-47.0); Hemoglobin 13.1 g/dL (12.0-16.0); Mean Corp Hgb Conc. 32.8 g/dL (33.0-37.0); Mean Corpuscular Volume 90.1 fL (81.0-99.0); Nucleated Red Blood Cells % 0 %; Platelet Count 288 10^3/uL (130-400); Red Cell Dist. Width 14.2 % (11.5-14.5)
[2025-06-07 16:14] LABS: ALT (SGPT) 31 U/L (0-35); AST (SGOT) 36 U/L (14-36); Albumin 4.2 g/dl (3.5-5.0); Alkaline Phosphatase 96 U/L (38-126); Blood Urea Nitrogen 17 mg/dl (7-17); Calcium 9.6 mg/dl (8.4-10.2); Carbon Dioxide 27 mmol/L (22-30); Chloride 103 mmol/L (98-107); Glucose 92 mg/dl (70-99); HDL Cholesterol 42 mg/dl; LDL Cholesterol, Calculated 28 mg/dl; Potassium 4.1 mmol/L (3.5-5.1); Sodium 138 mmol/L (135-145); Total Protein 7.5 g/dl (6.3-8.2); Very Low Density Lipoprotein 22 mg/dl (0-30); eGFR > 60.00
== END ==
LOC: REG 13:11
PROVIDERS: ATTENDING PHYSICIAN Family Medicine; OTHER PHYSICIAN Internal Medicine Cardiovascular Disease
DX: E78.5 Hyperlipidemia, unspecified (principal)
CPT/HCPCS: 36415; 80053; 80061; 85025